=== PATIENT | female | born 1965 | race Hispanic/Latino ===

== ENCOUNTER 2019-01-06 17:33 | Emergency (ER) | payer MEDICARE ==
[2019-01-06] MEDS ORDERED: PEPCID PO STA (18:37)
[2019-01-06] MEDS ORDERED: DECADRON PO STA (18:38)
[2019-01-06] MEDS ORDERED: VISTARIL PO STA (18:38)
[2019-01-06] MEDS ORDERED: CLARITIN PO STA (18:38)
--- NOTE | 2019-01-06 19:00 | Emergency Department Report ---
ED Allergic Reaction HPI - General Chief complaint: Allergic Reaction Stated complaint: ALLERGIC REACTION Time Seen by Provider: 01/06/19 18:15 Source: patient Mode of arrival: Ambulatory Limitations: No Limitations - History of Present Illness Initial Comments: 53-year-old female as well as department complaining of a few hours history of rash and pruritus is all over. From what she thinks is an environmental allergy to grass. She reports developing a rash which does not responded very well to the Benadryl. She reports no wheezing or shortness of breath. Reports no fever, chills, sweats, chest pain or palpitations. MD Complaint: allergic reaction -: Gradual Symptoms: rash, itching Severity: mild Treatment Prior to Arrival: benadryl - Related Data Previous Rx's Medication Instructions Recorded Last Taken Type Desloratadine [Clarinex] 5 mg PO DAILY #10 tablet 01/06/19 Unknown Rx Famotidine [Pepcid] 40 mg PO DAILY #14 tablet 01/06/19 Unknown Rx hydrOXYzine HCL [Atarax] 25 mg PO Q6HR PRN #20 tablet 01/06/19 Unknown Rx predniSONE [Deltasone] 50 mg PO QDAY #5 tab 01/06/19 Unknown Rx Allergies Allergy/AdvReac Type Severity Reaction Status Date / Time No Known Allergies Allergy Unverified 01/06/19 17:34 ED Review of Systems ROS: Stated complaint: ALLERGIC REACTION Other details as noted in HPI Comment: All other systems reviewed and negative ED Past Medical Hx - Past Medical History Previous Medical History?: No - Social History Smoking Status: Never Smoker Substance Use Type: None - Medications Home Medications: Home Medications Medication Instructions Recorded Confirmed Last Taken Type Desloratadine [Clarinex] 5 mg PO DAILY #10 tablet 01/06/19 Unknown Rx Famotidine [Pepcid] 40 mg PO DAILY #14 tablet 01/06/19 Unknown Rx hydrOXYzine HCL [Atarax] 25 mg PO Q6HR PRN #20 tablet 01/06/19 Unknown Rx predniSONE [Deltasone] 50 mg PO QDAY #5 tab 01/06/19 Unknown Rx ED Physical Exam - General Limitations: No Limitations General appearance: alert, in no apparent distress - Head Head exam: Present: atraumatic, normocephalic - Eye Eye exam: Present: normal appearance - ENT ENT exam: Present: mucous membranes moist, other (tongue and uvula are midline. Lips are normal size) - Neck Neck exam: Present: normal inspection, other (neck is supple. No lymphadenopathy. Airway is patent.) - Respiratory Respiratory exam: Present: normal lung sounds bilaterally. Absent: respiratory distress - Cardiovascular Cardiovascular Exam: Present: regular rate, normal rhythm. Absent: systolic murmur, diastolic murmur, rubs, gallop - GI/Abdominal GI/Abdominal exam: Present: soft, normal bowel sounds - Extremities Exam Extremities exam: Present: normal inspection - Back Exam Back exam: Present: normal inspection - Neurological Exam Neurological exam: Present: alert, oriented X3 - Psychiatric Psychiatric exam: Present: normal affect, normal mood - Skin Skin exam: Present: warm, dry, intact, normal color, urticaria (diffuse urticaria to the torso and around to the back. Also incorporating the upper aspect of her thighs bilaterally. There is some dermatographia some noted as well.). Absent: rash ED Medical Decision Making - Medical Decision Making 53-year-old female with allergic reaction to what she thinks is grass and the formal or rash. No signs of any angioedema or any airway compromise. Treated patient accordingly with a antihistaminic cocktail. I advised her on the need to follow-up with an clinical nurse specialist for further evaluation of this possible environmental irritant Critical care attestation.: If time is entered above; I have spent that time in minutes in the direct care of this critically ill patient, excluding procedure time. ED Disposition Clinical Impression: Hives Disposition: [id number] TO HOME OR SELFCARE Is pt being admited?: No Does the pt Need Aspirin: No Condition: Stable Instructions: Allergies (ED), Anaphylaxis (ED), Urticaria (ED) Referrals: PRIMARY CARE,MD [Referring] - 3-5 Days
[2019-01-06 19:51] VITALS: BP 98/70
== END 2019-01-06 19:51 | disposition home or self-care (01) ==
LOC: ED 17:33
DX: L50.9 Urticaria, unspecified (principal)
CPT/HCPCS: 99282; J1100; Q0177